=== PATIENT | male | born 1955 | race Caucasian/White ===

== ENCOUNTER 2024-06-29 03:19 | Observation (INO) | payer MEDICARE, OTHER ==
[2024-06-29 05:10] VITALS: BMI 30.4
[2024-06-29] MEDS ORDERED: Ondansetron PF 4 MG/2 ML Vial IVP PRN (05:39)
[2024-06-29] MEDS ORDERED: Acetaminophen 325 MG TAB PO PRN (05:39)
[2024-06-29 07:36] LABS: #Basophils 0.04 10x3/uL (0.0-0.2); %Basophils 0.4 % (0.0-1.0); %Eosinophils 1.7 % (0.0-10.0); %Lymphocytes 11.4 % (21.0-51.0); %Monocytes 6.2 % (0.0-10.0); Hematocrit 40.7 % (42.0-52.0); Hemoglobin 13.8 g/dL (14.0-18.0); Mean Corpuscular HGB CONC 33.9 g/dL (32.0-36.0); Mean Corpuscular Hemoglobin 31.4 pg (27.0-31.0); Mean Corpuscular Volume 92.5 fL (78.0-98.0); Platelet Count 178 10x3/uL (130-400); RBC Distribution Width 12.1 % (11.5-14.5)
[2024-06-29 07:47] LABS: Hemoglobin A1c 5.7 % (4.0-6.0)
[2024-06-29 07:49] LABS: Anion Gap 14 mmol/L (10-20); BUN (Urea Nitrogen) 18 mg/dL (8.4-25.7); Calc. Creatinine Clearance 102 mL/min (70-130); Calcium 8.9 mg/dL (7.8-10.44); Carbon Dioxide 22 mmol/L (23-31); Cardiac Risk 4.1 (Less than 4.5); Chloride 108 mmol/L (98-107); Cholesterol 127 mg/dl (< 200 Desired); Estimated GFR 95; Glucose 125 mg/dL (83-110); HDL Cholesterol 31 mg/dL (>60 Neg Risk); LDL Cholesterol, Calculated 69 mg/dL; Potassium 4.2 mmol/L (3.5-5.1); Sodium 140 mmol/L (136-145); Triglycerides 135 mg/dL (Less than 150)
[2024-06-29 07:54] LABS: Troponin I Less than 0.010 ng/mL (< 0.028)
[2024-06-29] MEDS: Enoxaparin 40 MG (0.4 mL) SYRINGE SC SCH (09:11)
[2024-06-29] MEDS ORDERED: Regadenoson 0.4 MG/5 ML SYRINGE ONE (09:37)
[2024-06-29 12:24] VITALS: BP 116/67; TEMP 97.7
[2024-06-29 12:31] LABS: Troponin I Less than 0.010 ng/mL (< 0.028)
== END 2024-06-29 15:08 | disposition home or self-care (01) ==
LOC: OBS 03:19
PROVIDERS: ADMIT Internal Medicine; ATTEND Family Medicine
DX: R07.89 Other chest pain (principal); I10 Essential (primary) hypertension; E78.5 Hyperlipidemia, unspecified; E03.9 Hypothyroidism, unspecified; R73.03 Prediabetes; I25.10 Atherosclerotic heart disease of native coronary artery without angina pectoris; Z79.82 Long term (current) use of aspirin; Z79.899 Other long term (current) drug therapy; Z79.84 Long term (current) use of oral hypoglycemic drugs; Z95.5 Presence of coronary angioplasty implant and graft; Z87.891 Personal history of nicotine dependence; Z88.0 Allergy status to penicillin; Z79.890 Hormone replacement therapy
CPT/HCPCS: 78452; 80048; 80061; 83036; 84145; 84484; 85025; 93017; A9502; G0378; J1650; J2785 ×2; 36415